=== PATIENT | male | born 1955 | race Caucasian/White ===

== ENCOUNTER 2020-11-22 18:29 | Emergency (ER) | payer OTHER ==
[~2020-11-22] VITALS: Ht 170.2 cm; Wt 93.0 kg
[2020-11-22 19:40] VITALS: BP 150/82
[2020-11-22] MEDS ORDERED: diphenhydrAMINE HCL 25 MG CAPSULE PO ONE (20:30)
[2020-11-22] MEDS ORDERED: FAMOTIDINE 20 MG TABLET. PO ONE (20:30)
[2020-11-22] MEDS ORDERED: predniSONE 20 MG TABLET PO ONE (20:30)
[2020-11-22] MEDS ORDERED: METH4TAB2 PO (20:34)
--- NOTE | 2020-11-22 20:34 | PHYS DOC ---
Past Medical History Past Medical History: High Cholesterol, Hypertension Additional Past Medical Histor: SHINGLES Past Surgical History: Tonsillectomy, Other Additional Past Surgical Histo: VASCETOMY Smoking Status: Never Smoker Alcohol Use: Occasionally Drug Use: None General Adult EDM: Chief Complaint: SKIN RASH/ABSCESS HPI: HPI: Patient is a 65 year old male presents to the emergency department complaining of rash to his forehead that he believes might be shingles. Patient states that he was working outside 2 days ago cutting heavy brush and trees and weeds, patient states that he noticed his forehead was itching on the right side and t he lesions looked similar to when he had shingles 12 years ago, however patient states these do not hurt, they do itch. Patient denies any other rashes of his skin, denies shortness of breath, fever or chills, chest pains, nausea, vomiting, diarrhea, visual changes or dizziness. Patient denies any other physical complaints or physical concerns. Patient states his last tetanus im munization was less than 5 years ago. Review of Systems: Review of Systems: 14 body systems of review of systems have been reviewed. See HPI for pertinent positives and negative responses, otherwise all other systems are negative, nonpertinent or noncontributory. Heart Score: C/O Chest Pain: No Risk Factors: Risk Factors: DM, Current or recent (<one month) smoker, HTN, HLP, family history of CAD, obesity. Risk Scores: Score 0 - 3: 2.5% MACE over next 6 weeks - Discharge Home Score 4 - 6: 20.3% MACE over next 6 weeks - Admit for Clinical Observation Score 7 - 10: 72.7% MACE over next 6 weeks - Early Invasive Strategies Allergies: Allergies: Allergies Coded Allergies Type Severity Reaction Last Updated Verified No Known Drug Allergies 11/22/20 No Physical Exam: PE: Constitutional: Well developed, well nourished, no acute distress, non-toxic appearance. 65-year-old male in no apparent distress. In no apparent distress. HENT: Normocephalic, atraumatic. Eyes: Conjunctiva normal, no discharge. Neck: Normal range of motion, no stridor. Cardiovascular: No cyanosis appreciated, distal cap refill less than 2 seconds. Lungs & Thorax: Patient is in no respiratory distress, no audible adventitious lung sounds appreciated. Abdomen: Nontender, no abnormalities noted. Skin: Warm, dry, no erythema, no rash. Except for right side of forehead has urticarial papular vesicular erythematous lesions that are not weeping, clearly demarcated borders without central clearing. Patient does complain of pruritus, they are not painful to touch. There are no open lesions of the skin. No lichenification appreciated. Back: No tenderness, no deformities. Extremities: No tenderness, no cyanosis, no clubbing, ROM intact, no edema. [] Neurologic: Alert and oriented X 3, normal motor function, normal sensory function, no focal deficits noted. Psychologic: Affect normal, judgement normal, mood normal. Current Patient Data: Vital Signs: Vital Signs Date Time Temp Pulse Resp B/P (MAP) Pulse Ox O2 Delivery O2 Flow Rate FiO2 11/22/20 19:40 97.3 58 18 100 Room Air 97.3 EKG: EKG: [] Radiology/Procedures: Radiology/Procedures: [] Course & Med Decision Making: Course & Med Decision Making Pertinent Labs and Imaging studies reviewed. (See chart for details) 65-year-old male, vital signs reviewed, presents emergency department with chief complaint of lesions to his forehead that he believes are shingles. Physical examination and explanation of events are consistent with contact dermatitis. Discussed contact dermatitis with patient, patient states and agrees that these lesions do not hurt like when he had shingles, patient states that he was around many weeds and may have come in contact with a poisonous plant such as poison oak or poison sumac, discussed with patient treatment with Benadryl and Pepcid, oral steroids, use of [id number] Caladryl lotion for comfort. Patient gave verbal understanding of discharge home instructions, follow-up with PCP soon, return to ER precautions and concerns, patient had no further questions or concerns and was thankful at discharge, remains hemodynamically stable, patient was discharged home without incident. Светлана Disclaimer: Светлана Disclaimer: This electronic medical record was generated, in whole or in part, using a voice recognition dictation system. Departure Departure Impression: Primary Impression: Contact dermatitis Qualified Codes: L24.7 - Irritant contact dermatitis due to plants, except food Disposition: HOME / SELF CARE / HOMELESS Condition: GOOD Referrals: JACKIE COBURN MD (PCP) Patient Instructions: Contact Dermatitis Additional Instructions: You were seen today in the emergency department for a rash on your forehead. After your description of events we have determined that this is a contact dermatitis because from most likely one of the vegetation plants you came in contact with while cleaning the brush and trees. You were treated today in the emergency department with a 25 mg Benadryl, a 20 mg Pepcid, and 60 mg of prednisone. I am prescribing you a Medrol Dosepak which is a de-escalating dose of prednisone that you will take over several days as prescribed. As we discussed you may use [id number] Caladryl lotion or similar type lotion for relief of itching and prevention of spreading of the rash. Please follow-up with your primary care provider sometime this week if not improving soon. You may also use [id number] Benadryl for recurrent itching, however I suspect your symptoms will resolve soon. Please return to the emergency department for worsening symptoms or other concerns. It was a pleasure taking care of you today in the emergency department and I thank you for allowing me to participate in your emergency healthcare needs. EMERGENCY DEPARTMENT GENERAL DISCHARGE INSTRUCTIONS Thank you for coming to [facility] Emergency Department (ED) today and trusting us with you care. We trust that you had a positive experience in our Emergency Department. If you wish to speak to the department management, you may call the Director at [phone]. YOUR FOLLOW UP INSTRUCTIONS ARE FOLLOWS: 1. Do you have a private Doctor? If you do not have a private doctor, please ask for a resource list of physicians or clinics that may be able to assist you with follow up care. 2. The Emergency Physicain has interpreted your x-rays. The X-Ray specialist will also review them. If there is a change in the findings, you will be notified in 48 hours when at all possible. 3. A lab test or culture has been done, your results will be reviewed and you will be notified if you need a change in treatment. ADDITIONAL INSTRUCTIONS AND INFORMATION: 1. Your care today has been supervised by a physician who is specially trained in emergency care. Many problems require more than one evaluation for a complete diagnosis and treatment. We recommend that you schedule your follow up appointment as recommended to ensure complete treatment of you illness or injury. If you are unable to obtain follow up care and continue to have a problem, or if your condition worsens, we recommend that you return to the ED. 2. We are not able to safely determine your condition over the phone nor are we able to give sound medical advice over the phone. For these safety reasons, if you call for medical advice we will ask you to come to the ED for further evaluation. 3. If you have any questions regarding these discharge instructions please call the ED at [phone]. SAFETY INFORMATION: In the interest of safety, wellness, and injury prevention; we encourage you to wear your sealbelt, if you smoke; quite smoking, and we encourage family to use a protective helmet for bicycling and other sporting events that present an increased risk for head injury. IF YOUR SYMPTOMS WORSEN OR NEW SYMPTOMS DEVELOP, OR YOU HAVE CONCERNS ABOUT YOUR CONDITION; OR IF YOUR CONDITION WORSENS WHILE YOU ARE WAITING FOR YOUR FOLLOW UP APPOINTMENT; EITHER CONTACT YOUR PRIMARY CARE DOCTOR, THE PHYSICIAN WHOSE NAME AND NUMBER YOU WERE GIVEN, OR RETURN TO THE ED IMMEDIATELY. Scripts Methylprednisolone (MEDROL) 4 Mg Tab.ds.pk 1 PKG PO UD for contact dermatitis, #1 PKG 0 Refills Prov: MAGDALENA VALIENTE APRN 11/22/20 MAGDALENA VALIENTE APRN Nov 22, 2020 20:34
== END 2020-11-22 20:48 | disposition home or self-care (01) ==
LOC: ER 18:29
DX: L24.7 Irritant contact dermatitis due to plants, except food (principal); E78.00 Pure hypercholesterolemia, unspecified; I10 Essential (primary) hypertension
CPT/HCPCS: 99284; J7512; Q0163